=== PATIENT | female | born 1975 | race Caucasian/White ===

== ENCOUNTER → 2022-11-30 10:50 | Outpatient (BNVA) | payer BC, SELFPAY | PROVIDERS: PCP Family Medicine; Visit Provider Registered Nurse | DX: Z79.899 Other long term (current) drug therapy (principal) | CPT/HCPCS: 80053; 80061; 82306; 82607; 83036; 83540; 84443; 85025 ==

== ENCOUNTER 2022-12-24 20:32 | Emergency (ER) | payer BC, MEDICAID, SELFPAY ==
[2022-12-24 20:38] VITALS: BP 135/82; PULSE 89; RESP 16; TEMP 36.5; O2SAT 99; BMI 30.5
--- NOTE | 2022-12-24 20:49 | XRR_ITS ---
PROCEDURE INFORMATION: Exam: XR Left Hand Exam date and time: 12/24/2022 8:58 PM Age: 47 years old Clinical indication: Injury or trauma; Other: Animal bites; Puncture; Hand; Left; Additional info: Wounds, dog bites, punctures/abrasions TECHNIQUE: Imaging protocol: Radiologic exam of the left hand. Views: 3 or more views. COMPARISON: No relevant prior studies available. FINDINGS: Bones/joints: Normal. Soft tissues: Normal. Other findings: Metallic ring over the ring finger proximal phalanx with or without metallic artifact. XR/XR hand LT min 3V* [id number] IMPRESSION: No acute findings.
[2022-12-24] MEDS: tetanus-dipt-pertussis 0.5 mL SDV IM (21:18)
[2022-12-24] MEDS: doxycycline 100 mg Tablet PO (21:27)
[2022-12-24] MEDS: clindamycin 150 mg Capsule 300 MG PO (21:27)
--- NOTE | 2022-12-24 21:49 | ED_ITS ---
HPI - Animal Bite General: Chief Complaint: Animal Bite Stated Complaint: Dog Bite Time Seen by Provider: 12/24/22 20:44 Source: patient Mode of arrival: ambulatory Limitations: no limitations History of Present Illness: Patient presents emergency department today for evaluation treatment of wound sustained to the dorsum of the left hand after getting bit by her dog. Patient states she has 2 dogs and, they began fighting over food. She states she reached out to try and separate them and was bit on the left hand. Patient has a couple of puncture winslow on the dorsum and a very small area of abrasion. Patient does have developing bruising and swelling-especially at the fourth MCP joint. Patient reports significant pain-she indicates it hurts too much to try and flex and extend her fingers. She reports pain radiating up into her forearm. Patient is unsure of her last tetanus immunization. Dogs are up-to-date on immunizations. Patient confirms penicillin allergy. Review of Systems General: Reports: 10 or more systems reviewed and unremarkable except in HPI and below PFSH ED PFSH: Medical History MDD (major depressive disorder) Psychiatric care Physical Exam Const: COMMON NORMALS: no acute distress, patient oriented x3 and alert HENMT: COMMON NORMALS: normocephalic, atraumatic and hearing grossly normal bilaterally HEAD & SCALP: normocephalic and atraumatic Eye: COMMON NORMALS: Equal, round and reactive pupils present, EOMs intact bilaterally and conjunctivae normal CONJUNCTIVA: Yes conjunctivae normal PUPIL: Yes Equal, round and reactive pupils present Neck/C-Spine: COMMON NORMALS: full ROM and no JVD Lymph: LYMPHATIC: no lymphadenopathy noted Resp: COMMON NORMALS: normal respiratory effort, No retractions and No use of accessory muscles Cardio: COMMON NORMALS: no JVD and regular rate RATE: regular rate Extremity: NARRATIVE EXTREMITY EXAM: Patient with significant left hand pain with pain with range of motion of the left fingers. Neuro: COMMON NORMALS: patient oriented x3 SENSORIUM/ORIENTATION: Yes alert Psych: COMMON NORMALS: mental status grossly normal, Normal thought process present, cooperative and normal affect THOUGHT PROCESS: Normal thought process present Skin: COMMON NORMALS: no rashes or lesions noted and turgor normal NARRATIVE SKIN EXAM: Cap refill less than 2 seconds in the left hand. Fingers are pink and warm. Patient has faint bruising developing on the dorsum of the left hand. Patient has swelling between the fourth and fifth MCP joint. Patient has a puncture noted to the proximal dorsum of the left hand with small puncture and abrasion noted towards the lateral aspect of the dorsum of the left hand. No signs of active bleeding. GENERAL SKIN EXAM: no rashes or lesions noted and turgor normal Course Vital Signs: Vital signs: Vital Signs Temperature 97.7 F 12/24/22 20:38 Pulse Rate 89 12/24/22 20:38 Respiratory Rate 16 12/24/22 20:38 Blood Pressure 135/82 12/24/22 20:38 Pulse Oximetry 99 12/24/22 20:38 MDM - Animal Bite Medical Decision Making Patient presented to the emergency department today for evaluation treatment of wounds to her left hand. Patient had her tetanus immunization updated here in the emergency department but, indicated her dogs are all fully immunized. We had a long discussion regarding typical effects of dog bites including bruising, swelling, pain, and concern for infection. Patient has a penicillin allergy so, according to up-to-date it is recommended patient have a combination therapy of Doxy and clindamycin. 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 Patient's wounds were cleaned, bandaged, and wrapped with Sang bandaging here in the ER. We discussed daily wound care of the bites and encouraged to follow-up with her primary care doctor for wound check next week. However, return precautions were given including fevers, streaking redness up your arm, or draining from her puncture wounds. Patient verbalized understanding and agreement to treatment plan. Differential Diagnosis Likely bite by animal; Unlikely rabies contact Lab Data Radiology Impressions Hand X-Ray 12/24/22 20:49 IMPRESSION: No acute findings. Discharge Plan Discharge Patient Disposition: Home Clinical Impression: Dog bite of dorsum of hand, Puncture wound Condition: Stable Prescriptions: New doxycycline hyclate 100 mg tablet 100 mg PO BID 10 Days Qty: 20 0RF clindamycin HCl 300 mg capsule 300 mg PO TID 10 Days Qty: 30 0RF No Action aripiprazole [Abilify] 5 mg tablet 5 mg PO DAILY prenat.vits,luz,nby-pkvc-rqutm Tablet 1 tab PO DAILY alprazolam [Xanax] 0.5 mg tablet 0.5 mg PO DAILY duloxetine [Cymbalta] 60 mg capsule,delayed release(DR/EC) 60 mg PO DAILY 30 Days Qty: 30 3RF Rx Instructions: take with 30mg cap for daily total of 90mg duloxetine 30 mg capsule,delayed release(DR/EC) 30 mg PO DAILY 30 Days Qty: 30 3RF Rx Instructions: take with 60mg cap for daily total of 90mg trazodone 50 mg tablet 50 mg PO .qhs 30 Days Qty: 30 3RF propranolol 10 mg tablet 10 mg PO BID Discharge Orders: Discharge ED (Routine); Ordered 12/24/22 Ordered By: Zaira Abarca Referrals: Arlene Duarte FNP [Primary Care Provider] - Discharge Diet: Usual diet Discharge Activity: Limit activity as instructed Patient Instructions: Animal Bites - Adult, Puncture Wound (ED) Activity Restrictions/Additional Instructions: Radiology read your x-ray is negative for signs of any bony injury or fracture. There is no signs of any retained foreign material. Unfortunately, bites- especially on the hand, can be extremely tender, sore, stiff, and swollen for several days. I do expect more swelling and bruising to develop over the next 24 to 48 hours. We recommend washing your wound twice a day with warm water and a mild soap. Unfortunately, dog bites do run the risk of infection with very specific types of organisms and, you have a penicillin allergy. For that reason we need to alter your antibiotic treatment and have prescribed you both doxycycline and clindamycin. I highly recommend taking an zsqz-mdd-vngevgn probiotic such as align, Culturelle, or Andigilog as antibiotic treatment can cause GI upset leading to diarrhea. I have given you some information about animal bites and puncture wounds for you to look over at home but, do want you to carefully monitor your wounds. If you feel like the wounds are getting infected-you run fever, you develop a streaking red line up your arm, you need to be seen and reevaluated. We still recommend a general wound check next week with your primary care doctor for continued monitoring until you are healed. Coding Level of Care Code ED Client Services Analyst for Bradley Kenney
[2022-12-24] MEDS: HYDROcodone-acetaminophen 5-325 mg Tablet 1 TAB PO (22:02)
== END 2022-12-24 22:17 | disposition home or self-care (01) ==
PROVIDERS: Emergency Provider Physician Assistant; PCP Nurse Practitioner Family
DX: S61.432A Puncture wound without foreign body of left hand, initial encounter (principal); W54.0XXA Bitten by dog, initial encounter; Z23 Encounter for immunization
CPT/HCPCS: 73130; 90471; 90715; 99283

== ENCOUNTER 2023-01-07 15:11 | Emergency (ER) | payer BC, MEDICAID, SELFPAY ==
[2023-01-07 15:30] VITALS: BP 113/75; PULSE 101; RESP 14; TEMP 36.8; O2SAT 98
[2023-01-07 16:28] LABS: Add Urine Microscopic? NO; Charge for UA Resulting for Rev
[2023-01-07 16:34] VITALS: BP 128/99; PULSE 96; RESP 18; O2SAT 97
--- NOTE | 2023-01-07 16:34 | W.ED.SOB ---
Documented by User: Clarence Desir MD 01/17/23 03:30 HPI - SOB/Dyspnea General: Chief Complaint: Shortness of Breath/Dyspnea Stated Complaint: Felicia sent for abd pain Time Seen by Provider: 01/07/23 16:34 History of Present Illness: HPI Narrative: Ms Holman is a 47-year-old lady presenting to the emergency department for multiple concerns. She notes few week history of intermittent right upper quadrant and epigastric abdominal pain after eating however recently of this is worsened over the past few few days. She notes more constant epigastric pain and right upper quadrant pain worse with palpation and movement. Occasional radiation left end up to the chest with burning and chalky taste. She does note some shortness of breath and elevated heart rate. In the waiting room she started having left-sided neck and arm pain with paresthesias. Overall course of symptoms has worsened. Intensity is moderate. No other specific changes in health, exacerbating, or alleviating factors identified. Onset (ago): week(s) Severity: moderate Associated symptoms: Reports chest pain, nausea and other Review of Systems General: Reports: 10 or more systems reviewed and unremarkable except in HPI and below Card: Reports: chest pain GI: Reports: nausea PFSH ED PFSH: Medical History MDD (major depressive disorder) Psychiatric care Surgical History H/O: hysterectomy History of appendectomy Physical Exam Const: COMMON NORMALS: alert GENERAL APPEARANCE: cooperative and well developed HENMT: COMMON NORMALS: normocephalic and atraumatic HEAD & SCALP: normocephalic and atraumatic THROAT: posterior oropharynx normal Eye: COMMON NORMALS: conjunctivae normal CONJUNCTIVA: Yes conjunctivae normal SCLERA: sclerae normal Neck/C-Spine: COMMON NORMALS: supple GENERAL: Yes trachea midline Resp: COMMON NORMALS: clear to auscultation bilaterally EFFORT & INSPECTION: Yes able to speak in complete sentences AUSCULTATION: clear to auscultation bilaterally Cardio: COMMON NORMALS: regular rate and regular rhythm RATE: regular rate RHYTHM: regular rhythm GI: COMMON NORMALS: Soft to palpation PALPATION: Yes Soft to palpation, Yes Tenderness to palpation present (GI), No Guarding due to palpation present (GI) and No Rigid due to palpation PERCUSSION: normal to percussion Extremity: GENERAL: Yes normal exam except as noted and No edema Neuro: COMMON NORMALS: moves all extremities SENSORIUM/ORIENTATION: Yes alert and No Orientation impaired Psych: COMMON NORMALS: mental status grossly normal and Normal thought process present THOUGHT PROCESS: Normal thought process present Course Vital Signs: Vital signs: Vital Signs Temperature 98.3 F 01/07/23 15:30 Pulse Rate 97 01/07/23 18:34 Respiratory Rate 16 01/07/23 18:34 Blood Pressure 128/99 01/07/23 16:34 Pulse Oximetry 97 01/07/23 18:34 Oxygen Delivery Me thod Room Air 01/07/23 15:30 MDM - SOB/Dyspnea Medical Decision Making 47-year-old female presenting with multiple concerns including abdominal and chest discomfort. Exam as above. No evidence of acute surgical abdomen. She is nontoxic in appearance. EKG demonstrates sinus rhythm with normal axis and intervals, no STEMI. ED evaluation ordered and patient care handed off to Dr. Urena pending completion of evaluation and reassessment of patient condition. 47-year-old female checked out to me by the previous physician at shift change. This lady had right upper quadrant and epigastric discomfort radiating into her chest. Her white blood cell count is 11.6. Hemoglobin 12. BMP is not remarkable. Minimal elevation in alk phos. Normal enzymes otherwise. Her lipase is 19. Urinalysis is negative. Gallbladder ultrasound shows no acute findings. Chest x-ray is negative. Suspect gastritis in this patient. We will treat as such and have her follow-up as an outpatient closely. Medical Records I reviewed the patient's medical records. Lab Data I reviewed the patient's lab results. 01/07/23 16:29 01/07/23 16:29 Labs/Radiology: Radiology Impressions Chest X-Ray 01/07/23 16:45 IMPRESSION: No acute findings. Gallbladder Ultrasound 01/07/23 17:05 IMPRESSION: 1. No acute findings. 2. Mild hepatomegaly. Laboratory Results WBC 11.6 10^3/uL (4.0-10.0) H 01/07/23 16:29 RBC 4.94 10^6/uL (4.1-5.3) 01/07/23 16:29 Hgb 11.7 g/dL (11.5-15.3) 01/07/23 16: Hct 39.0 % (37.0-47.0) 01/07/23 16: MCV 78.9 fl (81-99) L 01/07/23 16: MCH 23.7 pg (28.0-34.0) L 01/07/23 16: MCHC 30.0 g/dL (30.0-36.0) 01/07/23 16: RDW 16.2 % (12.1-15.1) H 01/07/23 16: Plt Count 201 10^3/cmm (130-400) 01/07/23 16: MPV 11.4 fL (7.4-10.4) H 01/07/23 16: Neut % (Auto) 73.1 % 01/07/23 16: Lymph % (Auto) 19.0 % 01/07/23: [place] % (Auto) 4.9 % 01/07/23: Eos % (Auto) 2.3 % 01/07/23 16: Baso % (Auto) 0.3 % 01/07/23 16: Neut # (Auto) 8.44 10^3/uL (1.8-7.7) H 01/07/23 16: Lymph # (Auto) 2.2 10^3/uL (0.8-4.8) 01/07/23 16: [place] # (Auto) 0.6 10^3/uL (0.2-0.9) 01/07/23: Eos # (Auto) 0.3 10^3/uL (0.0-0.8) 01/07/23 16: Baso # (Auto) 0.0 10^3/uL (0.0-0.1) 01/07/23: Nucleated RBC % (auto) 0 % 01/07/23: Nucleated RBCs # 0.0 /100WBC 01/07/23 16: Sodium 136 mmol/L (136-145) 01/07/23 16: Potassium 4.1 mmol/L (3.5-5.1) 01/07/23 16: Chloride 96 mmol/L (98-107) L 01/07/23 16:29 Carbon Dioxide 29 mmol/L (22-29) 01/07/23 16:29 Anion Gap 15.1 (5-19) 01/07/23 16:29 BUN 11 mg/dL (6-20) 01/07/23 16:29 Creatinine 0.8 mg/dL (0.5-0.9) 01/07/23 16:29 GFR Calculation 76.2 mL/min (90-130) L 01/07/23 16:29 Glucose 87 mg/dL (65-115) 01/07/23 16:29 Calculated Osmolality 281 mOsm/kg (285-295) L 01/07/23 16:29 Calcium 9.8 mg/dL (8.5-10.5) 01/07/23 16:29 Total Bilirubin 0.3 mg/dL (0.15-1.2) 01/07/23 16:29 AST 29 U/L (0-32) 01/07/23 16:29 ALT 35 U/L (0-33) H 01/07/23 16:29 Alkaline Phosphatase 145 U/L (35-105) H 01/07/23 16:29 Total Protein 7.9 g/dL (6.6-8.7) 01/07/23 16:29 Albumin 4.2 g/dL (3.5-5.2) 01/07/23 16:29 Globulin 3.7 g/dL (1.3-4.6) 01/07/23 16:29 Lipase 19 U/L (13-60) 01/07/23 16:29 HCG, Qual Negative (Negative) 01/07/23 15:35 Urine Color Yellow (Yellow) 01/07/23 15:35 Urine Appearance Clear (CLEAR) 01/07/23 15:35 Urine pH 8 (5-7) H 01/07/23 15:35 Ur Specific [place] 1.010 (1.005-1.030) 01/07/23 15:35 Urine Protein Neg (Negative) 01/07/23 15:35 Urine Glucose (UA) Norm (Normal) 01/07/23 15:35 Urine Ketones Negative (Negative) 01/07/23 15:35 Urine Blood Neg (Negative) 01/07/23 15:35 Urine Nitrate Negative (Negative) 01/07/23 15:35 Urine Bilirubin Neg (Negative) 01/07/23 15:35 Prot Sulfosalicylic Acd Negative (Negative) 01/07/23 15:35 Urine Urobilinogen Norm mg/dL (Negative) 01/07/23 15:35 Ur Leukocyte Esterase Negative (Negative) 01/07/23 15:35 Discharge Plan Discharge Patient Disposition: Home Clinical Impression: Gastritis Condition: Stable Prescriptions: New sucralfate 1 gram tablet 1 g PO TID 28 Days Qty: 84 0RF Prevacid 30 mg capsule,delayed release(DR/EC) 30 mg PO DAILY Qty: 30 0RF No Action aripiprazole [Abilify] 5 mg tablet 5 mg PO DAILY prenat.vits,luz,jnb-uslp-mgmgr Tablet 1 tab PO DAILY alprazolam [Xanax] 0.5 mg tablet 0.5 mg PO DAILY duloxetine [Cymbalta] 60 mg capsule,delayed release(DR/EC) 60 mg PO DAILY 30 Days Qty: 30 3RF Rx Instructions: take with 30mg cap for daily total of 90mg duloxetine 30 mg capsule,delayed release(DR/EC) 30 mg PO DAILY 30 Days Qty: 30 3RF Rx Instructions: take with 60mg cap for daily total of 90mg trazodone 50 mg tablet 50 mg PO .qhs 30 Days Qty: 30 3RF propranolol 10 mg tablet 10 mg PO BID Discharge Orders: Discharge ED (Routine); Ordered 01/07/23 Ordered By: Luis A Urena Referrals: Arlene Duarte, [employer] [Primary Care Provider] - 4-7 days Patient Instructions: Gastritis (ED) Activity Restrictions/Additional Instructions: Medications as directed. Take sucralfate 30 minutes before each meal. Follow-up with your doctor this coming week. Return for worsening discomfort or shortness of breath despite treatment, vomiting liquids or medications, fever, other concerning symptoms Coding Level of Care Code ED Sales Agent Casualty Insurance for [employer] Documented by User: Luis A Urena DO 01/08/23 13:31 HPI - SOB/Dyspnea General: Chief Complaint: Shortness of Breath/Dyspnea Stated Complaint: Dr Duarte sent for abd pain Time Seen by Provider: 01/07/23 16:34 [facility] PFSH: Medical History MDD (major depressive disorder) Psychiatric care Surgical History H/O: hysterectomy History of appendectomy Course Vital Signs: Vital signs: Vital Signs Temperature 98.3 F 01/07/23 15:30 Pulse Rate 97 01/07/23 18:34 Respiratory Rate 16 01/07/23 18:34 Blood Pressure 128/99 01/07/23 16:34 Pulse Oximetry 97 01/07/23 18:34 Oxygen Delivery Me thod Room Air 01/07/23 15:30 MDM - SOB/Dyspnea Medical Decision Making 47-year-old female checked out to me by the previous physician at shift change. This lady had right upper quadrant and epigastric discomfort radiating into her chest. Her white blood cell count is 11.6. Hemoglobin 12. BMP is not remarkable. Minimal elevation in alk phos. Normal enzymes otherwise. Her lipase is 19. Urinalysis is negative. Gallbladder ultrasound shows no acute findings. Chest x-ray is negative. Suspect gastritis in this patient. We will treat as such and have her follow-up as an outpatient closely. Lab Data 01/07/23 16:29 01/07/23 16:29 Labs/Radiology: Radiology Impressions Chest X-Ray 01/07/23 16:45 IMPRESSION: No acute findings. Gallbladder Ultrasound 01/07/23 17:05 IMPRESSION: 1. No acute findings. 2. Mild hepatomegaly. Laboratory Results WBC 11.6 10^3/uL (4.0-10.0) H 01/07/23 16:29 RBC 4.94 10^6/uL (4.1-5.3) 01/07/23 16:29 Hgb 11.7 g/dL (11.5-15.3) 01/07/23 16:29 Hct 39.0 % (37.0-47.0) 01/07/23 16:29 MCV 78.9 fl (81-99) L 01/07/23 16:29 MCH 23.7 pg (28.0-34.0) L 01/07/23 16: MCHC 30.0 g/dL (30.0-36.0) 01/07/23 16: RDW 16.2 % (12.1-15.1) H 01/07/23 16: Plt Count 201 10^3/cmm (130-400) 01/07/23 16: MPV 11.4 fL (7.4-10.4) H 01/07/23 16: Neut % (Auto) 73.1 % 01/07/23 16: Lymph % (Auto) 19.0 % 01/07/23 16: [place] % (Auto) 4.9 % 01/07/23 16: Eos % (Auto) 2.3 % 01/07/23 16: Baso % (Auto) 0.3 % 01/07/23 16: Neut # (Auto) 8.44 10^3/uL (1.8-7.7) H 01/07/23 16: Lymph # (Auto) 2.2 10^3/uL (0.8-4.8) 01/07/23 16: [place] # (Auto) 0.6 10^3/uL (0.2-0.9) 01/07/23 16: Eos # (Auto) 0.3 10^3/uL (0.0-0.8) 01/07/23 16: Baso # (Auto) 0.0 10^3/uL (0.0-0.1) 01/07/23 16: Nucleated RBC % (auto) 0 % 01/07/23 16: Nucleated RBCs # 0.0 /100WBC 01/07/23 16: Sodium 136 mmol/L (136-145) 01/07/23 16: Potassium 4.1 mmol/L (3.5-5.1) 01/07/23 16: Chloride 96 mmol/L (98-107) L 01/07/23 16: Carbon Dioxide 29 mmol/L (22-29) 01/07/23 16: Anion Gap 15.1 (5-19) 01/07/23 16: BUN 11 mg/dL (6-20) 01/07/23 16:29 Creatinine 0.8 mg/dL (0.5-0.9) 01/07/23 16:29 GFR Calculation 76.2 mL/min (90-130) L 01/07/23 16:29 Glucose 87 mg/dL (65-115) 01/07/23 16:29 Calculated Osmolality 281 mOsm/kg (285-295) L 01/07/23 16:29 Calcium 9.8 mg/dL (8.5-10.5) 01/07/23 16:29 Total Bilirubin 0.3 mg/dL (0.15-1.2) 01/07/23 16:29 AST 29 U/L (0-32) 01/07/23 16:29 ALT 35 U/L (0-33) H 01/07/23 16:29 Alkaline Phosphatase 145 U/L (35-105) H 01/07/23 16:29 Total Protein 7.9 g/dL (6.6-8.7) 01/07/23 16:29 Albumin 4.2 g/dL (3.5-5.2) 01/07/23 16:29 Globulin 3.7 g/dL (1.3-4.6) 01/07/23 16:29 Lipase 19 U/L (13-60) 01/07/23 16:29 HCG, Qual Negative (Negative) 01/07/23 15:35 Urine Color Yellow (Yellow) 01/07/23 15:35 Urine Appearance Clear (CLEAR) 01/07/23 15:35 Urine pH 8 (5-7) H 01/07/23 15:35 Ur Specific [place] 1.010 (1.005-1.030) 01/07/23 15:35 Urine Protein Neg (Negative) 01/07/23 15:35 Urine Glucose (UA) Norm (Normal) 01/07/23 15:35 Urine Ketones Negative (Negative) 01/07/23 15:35 Urine Blood Neg (Negative) 01/07/23 15:35 Urine Nitrate Negative (Negative) 01/07/23 15:35 Urine Bilirubin Neg (Negative) 01/07/23 15:35 Prot Sulfosalicylic Acd Negative (Negative) 01/07/23 15:35 Urine Urobilinogen Norm mg/dL (Negative) 01/07/23 15:35 Ur Leukocyte Esterase Negative (Negative) 01/07/23 15:35 Discharge Plan Discharge Patient Disposition: Home Clinical Impression: Gastritis Condition: Stable Prescriptions: New sucralfate 1 gram tablet 1 g PO TID 28 Days Qty: 84 0RF Prevacid 30 mg capsule,delayed release(DR/EC) 30 mg PO DAILY Qty: 30 0RF No Action aripiprazole [Abilify] 5 mg tablet 5 mg PO DAILY prenat.vits,luz,lco-uimd-avzuu Tablet 1 tab PO DAILY alprazolam [Xanax] 0.5 mg tablet 0.5 mg PO DAILY duloxetine [Cymbalta] 60 mg capsule,delayed release(DR/EC) 60 mg PO DAILY 30 Days Qty: 30 3RF Rx Instructions: take with 30mg cap for daily total of 90mg duloxetine 30 mg capsule,delayed release(DR/EC) 30 mg PO DAILY 30 Days Qty: 30 3RF Rx Instructions: take with 60mg cap for daily total of 90mg trazodone 50 mg tablet 50 mg PO .qhs 30 Days Qty: 30 3RF propranolol 10 mg tablet 10 mg PO BID Discharge Orders: Discharge ED (Routine); Ordered 01/07/23 Ordered By: Luis A Urena Referrals: Arlene Duarte FNP [Primary Care Provider] - 4-7 days Patient Instructions: Gastritis (ED) Activity Restrictions/Additional Instructions: Medications as directed. Take sucralfate 30 minutes before each meal. Follow-up with your doctor this coming week. Return for worsening discomfort or shortness of breath despite treatment, vomiting liquids or medications, fever, other concerning symptoms Coding Level of Care Code ED Sales Agent Casualty Insurance for Bradley Kenney
[2023-01-07 16:37] LABS: Basophils % 0.3 %; Eosinophils # 0.3 10^3/uL (0.0-0.8); Eosinophils % 2.3 %; Hemoglobin 11.7 g/dL (11.5-15.3); Lymphocytes # 2.2 10^3/uL (0.8-4.8); Mean Corpuscular Hemoglobin 23.7 pg (28.0-34.0); Mean Corpuscular Volume 78.9 fl (81-99); Mean Platelet Volume 11.4 fL (7.4-10.4); Monocytes # 0.6 10^3/uL (0.2-0.9); Monocytes % 4.9 %; Neutrophils # 8.44 10^3/uL (1.8-7.7); Neutrophils % 73.1 %; Nucleated Red Blood Cells % 0 %; Platelet Count 201 10^3/cmm (130-400); Red Blood Count 4.94 10^6/uL (4.1-5.3); Red Cell Distribution Width 16.2 % (12.1-15.1); White Blood Count 11.6 10^3/uL (4.0-10.0)
[2023-01-07 16:38] LABS: Bilirubin Urine Neg (Negative); Blood Urine Neg (Negative); Glucose Urine UA Norm (Normal); HCG Qualitative Urine. Negative (Negative); Ketones Urine Negative (Negative); Leukocyte Esterase Urine Negative (Negative); Nitrate Urine Negative (Negative); Protein Urine Neg (Negative); Sulfosalicylic Acid Urine Negative (Negative); Urine Appearance Clear (CLEAR); Urine Color Yellow (Yellow); Urobilinogen Urine Norm (Negative); pH Urine 8 (5-7)
--- NOTE | 2023-01-07 16:45 | XRR_ITS ---
PROCEDURE INFORMATION: Exam: XR Chest Exam date and time: 01/07/2023 4:59 PM Age: 47 years old Clinical indication: Pain; Right-sided; Additional info: Cough, ruq/rll pain TECHNIQUE: Imaging protocol: Radiologic exam of the chest. Views: 1 view. COMPARISON: CR XR chest 1V [id number] 08/24/2018 8:12 PM FINDINGS: Lungs: Unremarkable. No consolidation. Pleural spaces: Unremarkable. No pleural effusion. No pneumothorax. Heart/Mediastinum: Unremarkable. No cardiomegaly. Bones/joints: Unremarkable. XR/XR chest 1V portable [id number] IMPRESSION: No acute findings.
[2023-01-07 17:00] LABS: Alanine Aminotransferase 35 U/L (0-33); Albumin Level 4.2 g/dL (3.5-5.2); Alkaline Phosphatase 145 U/L (35-105); Anion Gap 15.1 (5-19); Aspartate Amino Transferase 29 U/L (0-32); Blood Urea Nitrogen 11 mg/dL (6-20); Calcium 9.8 mg/dL (8.5-10.5); Carbon Dioxide 29 mmol/L (22-29); Chloride 96 mmol/L (98-107); Globulin 3.7 g/dL (1.3-4.6); Glomerular Filtration Rate 76.2 mL/min (90-130); Glucose 87 mg/dL (65-115); Lipase 19 U/L (13-60); Osmolality Calculated 281 mOsm/kg (285-295); Potassium 4.1 mmol/L (3.5-5.1); Sodium 136 mmol/L (136-145); Total Bilirubin 0.3 mg/dL (0.15-1.2); Total Protein 7.9 g/dL (6.6-8.7)
[2023-01-07 17:05] VITALS: RESP 16; O2SAT 97
[2023-01-07] MEDS: pantoprazole 40 mg SDV IVP (17:05)
[2023-01-07] MEDS: morphine 4 mg/mL SDV 1 mL IVP (17:05)
[2023-01-07] MEDS: ondansetron 2 mg/ML SDV 2 mL 4 MG IVP (17:05)
--- NOTE | 2023-01-07 17:05 | USR_ITS ---
PROCEDURE INFORMATION: Exam: US Abdomen, Limited; Right Upper Quadrant Exam date and time: 01/07/2023 5:36 PM Age: 47 years old Clinical indication: Abdominal pain; Acute; Additional info: Ruq pain TECHNIQUE: Imaging protocol: Real time ultrasound of the abdomen with image documentation. Limited exam focused on the right upper quadrant. COMPARISON: No relevant prior studies available. FINDINGS: Liver: The liver is of normal echogenicity measuring 17.3 cm in length. Gallbladder: Normal. No gallstones. There is no gallbladder wall thickening. Biliary ducts: Normal. No stones. No dilation. Pancreas: Visualized pancreas is unremarkable. Right kidney: Normal. No mass. No hydronephrosis. Intraperitoneal space: No ascites. US/US gall bladder [id number] IMPRESSION: 1. No acute findings. 2. Mild hepatomegaly.
[2023-01-07] MEDS: sodium chloride 0.9% 1,000 ML 999 ML IV (17:06)
--- NOTE | 2023-01-07 17:18 | ECG_ITS ---
[facility] Test Date: 2023-01-07 Pat Name: Lesli Holman Department: Room: Gender: Female Internet Marketing Strategist: : 1975 Requested By: Clarence Desir Order Number: [id number] Rod MD: Jos Berrios M.D. Measurements Intervals Flynn Rate: 90 P: 56 NM: 149 QRS: 23 QRSD: 94 T: 59 QT: 353 QTc: 432 Interpretive Statements SINUS RHYTHM POSSIBLE LEFT ATRIAL ENLARGEMENT [-0.1mV P-WAVE IN V1/V2] LOW QRS VOLTAGE IN PRECORDIAL LEADS [QRS DEFLECTION < 1.0 mV IN CHEST LEADS] No previous ECG available for comparison Electronically Signed On 01-09-2023 8:00:54 CDT by Jos Berrios M.D. [id number]
[2023-01-07 17:34] VITALS: PULSE 96; RESP 16; O2SAT 95
[2023-01-07] MEDS: lidocaine 2% viscous 15 ML, aluminum-mag hydrox-simethicon 30 ML, sucralfate oral liq 1 GM PO (18:32)
[2023-01-07 18:34] VITALS: PULSE 97; RESP 16; O2SAT 97
== END 2023-01-07 19:45 | disposition home or self-care (01) ==
PROVIDERS: Emergency Medicine; Emergency Provider Emergency Medicine; PCP Nurse Practitioner Family
DX: K29.70 Gastritis, unspecified, without bleeding (principal)
CPT/HCPCS: 36415; 71045; 76705; 80053; 81003; 81025; 83690; 85025; 93005; 96374; 96375; 99285; C9113; J2270; J2405; J7030

== ENCOUNTER → 2023-02-01 10:52 | Outpatient (BNVA) | payer BC, SELFPAY | PROVIDERS: PCP Family Medicine; Visit Provider Registered Nurse | DX: F41.9 Anxiety disorder, unspecified (principal); F32.9 Major depressive disorder, single episode, unspecified; Z79.899 Other long term (current) drug therapy | CPT/HCPCS: 80053; 85025 ==

== ENCOUNTER 2024-01-21 17:58 | Emergency (ER) | payer BC, MEDICAID, SELFPAY ==
[2024-01-21 18:26] VITALS: BP 125/80; PULSE 77; RESP 16; TEMP 36.6; O2SAT 100
[2024-01-21] MEDS: dexamethasone 10 mg/mL INJ IM (19:19)
--- NOTE | 2024-01-21 19:23 | W.ED.ALLEREA ---
HPI - Allergic Reaction General: Chief complaint: Allergic Reaction Stated complaint: Bee Sting Time Seen by Provider: 01/21/24 18:56 Source: patient Mode of arrival: ambulatory Limitations: no limitations History of Present Illness: HPI narrative: Patient is a 48-year-old female who presents the emergency department complaining of right hand swelling after being stung by 2 wasps last night. 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 At this time she notes the swelling is starting to creep proximately up her arm, and has been itching all the way up to her neck. She also got concerned when she noticed some blisters formed on the dorsal aspect of her right hand. She has been taking Benadryl but this has not been helping. She does state that she has been breathing normally and she does not feel that her tongue or throat or swelling at this time. No other symptoms to report. The sting occurred approximately 1999 last night. MD complaint: allergic reaction Onset (ago): day(s) Exposure: insect bite Associated symptoms: Deny abdominal pain, nausea or vomiting Severity: moderate Treatment prior to arrival: benadryl Review of Systems General: Reports: 10 or more systems reviewed and unremarkable except in HPI and below Const: Denies: fever(s), chills or fatigue Eyes: Denies: change in vision ENMT: Denies: throat pain, ear or mastoid pain or nasal discharge Card: Denies: chest pain, palpitations, swelling of feet/ankles or lightheadedness Resp: Denies: dyspnea, productive cough or wheezing GI: Denies: abdominal pain, nausea, vomiting, diarrhea or constipation : Denies: flank pain, difficulty voiding, dysuria or urinary frequency Musc: Denies: neck pain, back pain or joint pain Skin/Breast: Reports: pruritus, skin swelling and other (Insect sting) Neuro: Denies: headache(s), numbness in extremities or weakness in extremities PFSH ED PFSH: Medical History Anxiety MDD (major depressive disorder) Psychiatric care Surgical History History of appendectomy H/O: hysterectomy Physical Exam Const: COMMON NORMALS: no acute distress, patient oriented x3 and no limitations GENERAL APPEARANCE: cooperative, comfortable and well developed ORIENTATION/CONSCIOUSNESS: Yes awake, Yes oriented to person, Yes oriented to place and Yes oriented to time HENMT: COMMON NORMALS: normocephalic, atraumatic, hearing grossly normal bilaterally, moist oral mucous membranes and oropharynx normal HEAD & SCALP: normocephalic and atraumatic OTHER: No angioedema or oropharyngeal swelling Eye: COMMON NORMALS: Equal, round and reactive pupils present, EOMs intact bilaterally and conjunctivae normal CONJUNCTIVA: Yes conjunctivae normal PUPIL: Yes Equal, round and reactive pupils present Neck/C-Spine: COMMON NORMALS: full ROM, supple and no JVD Resp: COMMON NORMALS: normal respiratory effort, No retractions, No use of accessory muscles and clear to auscultation bilaterally AUSCULTATION: clear to auscultation bilaterally Cardio: COMMON NORMALS: no JVD, regular rate, regular rhythm, No clicks present (Cardio), No murmurs present (Cardio) and No rub (Cardio) RATE: regular rate RHYTHM: regular rhythm Extremity: COMMON NORMALS: full ROM and capillary refill normal NARRATIVE EXTREMITY EXAM: There is swelling noted to patient's right hand, worse on the dorsal aspect. Is difficult for her to make a fist due to the swelling. There is no skin breakdown however there are notable some small blisters on the dorsal aspect. Swelling does not extend past the wrist. Good pulses bilaterally. Neuro: COMMON NORMALS: patient oriented x3, moves all extremities, no focal motor deficits and no sensory deficits noted SENSORIUM/ORIENTATION: Yes oriented to person, Yes oriented to place and Yes oriented to time Psych: COMMON NORMALS: mental status grossly normal and Normal thought process present THOUGHT PROCESS: Normal thought process present Course Vital Signs: Vital signs: Vital Signs Temperature 97.8 F 01/21/24 18:26 Pulse Rate 77 01/21/24 18:26 Respiratory Rate 16 01/21/24 18:26 Blood Pressure 125/80 01/21/24 18:26 Pulse Oximetry 100 01/21/24 18:26 Oxygen Delivery Me thod Room Air 01/21/24 18:26 MDM - Allergic Reaction Medical Decision Making Patient presented for evaluation of wasp stings. At this time it does appear that she has a local skin reaction to her right hand, no concerns of systemic allergic reaction as she has normal breathing, 100% on room air, no oropharyngeal swelling. She only has taken Benadryl at this point. She will be given a shot of Decadron and sent home with steroids to take at home. She is also informed to monitor for any signs of worsening breathing that would warrant return to the emergency department. She states that she has had this issue before and knows what signs to watch for. Other reasons to return discussed and she will follow-up with primary care for reevaluation. No radiology studies performed this visit Discharge Plan Discharge Patient Disposition: Home Clinical Impression: Wasp sting Condition: Stable Prescriptions: New prednisone 20 mg tablet 60 mg PO ONCE 5 Days Qty: 15 0RF No Action ferrous sulfate 325 mg (65 mg iron) tablet 325 mg PO DAILY pantoprazole [Protonix] 40 mg tablet,delayed release (DR/EC) 40 mg PO BID cholecalciferol (vitamin D3) 1,250 mcg (50,000 unit) capsule 50,000 unit PO .weekly topiramate [Topamax] 25 mg tablet 25 mg PO BID duloxetine [Cymbalta] 60 mg capsule,delayed release(DR/EC) 60 mg PO DAILY Qty: 30 3RF pantoprazole [Protonix] 20 mg tablet,delayed release (DR/EC) 20 mg PO DAILY alum-mag hydroxide-simeth [Maalox Advanced] 200-200-20 mg/5 mL suspension 5 ml PO ONCE PRN (Reason: dyspepsia) Qty: 15 0RF Discharge Orders: Discharge ED (Routine); Ordered 01/21/24 Ordered By: Nathan Michaels Referrals: Marlon Keith MD [Primary Care Provider] - Discharge Diet: Usual diet Discharge Activity: Increase activity as tolerated Patient Instructions: Insect Bite or Sting (ED) Activity Restrictions/Additional Instructions: Take antibiotics as prescribed. Continue taking Benadryl at home. If you develop any respiratory issues or worsening of pain/swelling, please return for reevaluation. Otherwise please follow-up with primary care later this week for reevaluation. Coding Level of Care Code [facility] [employer] Counselor for Bradley Kenney
[2024-01-21 19:29] VITALS: BP 127/85; PULSE 79; RESP 16; O2SAT 97
== END 2024-01-21 19:30 | disposition home or self-care (01) ==
PROVIDERS: Emergency Provider Physician Assistant; PCP Family Medicine
DX: T63.461A Toxic effect of venom of wasps, accidental (unintentional), initial encounter (principal)
CPT/HCPCS: 96372; 99284; J1100